=== PATIENT | female | born 1970 | race Caucasian/White ===

== ENCOUNTER → 2023-05-13 09:59 | Outpatient (CLI) | payer OTHER, SELFPAY ==
--- NOTE | ~2023-05-13 | MR_ITS ---
MRI of the right knee Clinical history: Pain Technique: Coronal proton density and proton density-weighted images, sagittal proton-density and T2 fat-sat images, and axial proton-density fat-saturated images were acquired. Findings: There is complete tear at the proximal to midportion of the ACL. Posterior cruciate ligamen t is intact. Medial collateral ligament and the lateral collateral ligament complex are intact. Popli teus tendon is intact. There is horizontal tear of the posterior horn and body of the medial meniscus. No lateral meniscal t ear evident. There is prominent edematous change at the posterolateral corner region. Popliteal fibul ar ligament is not clearly delineated. There is extensive marrow edema along the posterior aspect of the medial and lateral tibial plateau r egions, without definite fracture. There is focal marrow edema at the lateral corner of the lateral f emoral condyle. There is mild diffuse chondral thinning in the medial lateral compartment. Patellofem oral articular cartilage is well preserved. Extensor mechanism is intact. Small to small moderate joint effusion is present, with small Barnhart's c yst. There is extensive subcutaneous soft tissue edema. There is extensive deeper soft tissue edema a bout the distal femur, and about the popliteus muscle belly. Impression: Complete tear of the proximal to midportion of the ACL. Horizontal tear of the posterior horn and body of the medial meniscus. Extensive edema at the posterolateral corner with borderline dilatation of popliteal fibular ligament . Associated posterolateral corner injury is suspected. Extensive bone contusion along the posterior aspect of the medial and lateral tibial plateau regions, without definite fracture. Extensive soft tissue edema, presumably posttraumatic in nature. Element of capsular injury may be pr esent posteriorly. Small to small moderate joint effusion with small Barnhart's cyst. Reviewed, dictated and finalized at [facility]. Impression: Complete tear of the proximal to midportion of the ACL. Horizontal tear of the posterior horn and body of the medial meniscus. Extensive edema at the posterolateral corner with borderline dilatation of popl iteal fibular ligament. Associated posterolateral corner injury is suspected. Extensive bone contusion along the posterior aspect of the medial and lateral t ibial plateau regions, without definite fracture. Extensive soft tissue edema, presumably posttraumatic in nature. Element of cap sular injury may be present posteriorly. Small to small moderate joint effusion with small Barnhart's cyst.
== END ==
PROVIDERS: PCP Orthopaedic Surgery; Visit Provider Orthopaedic Surgery
DX: S83.511A Sprain of anterior cruciate ligament of right knee, initial encounter (principal); S83.241A Other tear of medial meniscus, current injury, right knee, initial encounter; X58.XXXA Exposure to other specified factors, initial encounter; M25.461 Effusion, right knee
CPT/HCPCS: 73721